=== PATIENT | male | born 1985 | race Two or more races ===

== ENCOUNTER 2016-09-08 19:54 | Inpatient (IN) | payer SELFPAY ==
[~2016-09-08] VITALS: Ht 182.9 cm; Wt 90.7 kg
[2016-09-08] MEDS: OLANZAPINE 10 MG/VIAL IM ONE ×2 (21:00→21:04)
[2016-09-08] MEDS: LORAZEPAM 2MG/ML CPJ IM ONE ×2 (21:02→21:04)
[2016-09-08] MEDS: BACITRACIN ZINC OINT UDPKT TOP ONE ×2 (21:02→21:04)
[2016-09-08] MEDS: LIDOCAINE HCL 1%/EPI 1:200,000 30 ML VIAL MC ONE ×2 (21:02→21:04)
[2016-09-08] MEDS: SODIUM CHLORIDE 0.9% 1,000 ML IV ONE ×2 (21:02→21:04)
[2016-09-08 21:30] LABS: BASOPHILS % 0.2 % (0.0-2.0); EOSINOPHILS % 0.4 % (0.0-5.0); HEMATOCRIT. 44.8 % (42.0-52.0); HEMOGLOBIN. 15.1 g/dL (14.0-18.0); LYMPHOCYTES % 17.1 % (20.0-50.0); MEAN CORPUSCULAR HEMOGLOBIN 29.4 pg (28.0-32.0); MEAN CORPUSCULAR HGB CONC 33.6 g/dL (31.0-37.0); MEAN CORPUSCULAR VOLUME 87.5 fL (80.0-94.0); MEAN PLATELET VOLUME 7.7 fl (7.4-10.4); MONOCYTES % 4.6 % (2.0-8.0); NEUTROPHILS % 77.7 % (40.0-76.0); PLATELET 171 x1000/uL (130-400); RED BLOOD CELL COUNT 5.12 mill/uL (4.7-6.1); RED CELL DISTRIBUTION WIDTH 14.6 % (11.6-14.6); WHITE BLOOD COUNT 5.8 x1000/uL (4.5-11.0)
[2016-09-08 21:47] LABS: ACETAMINOPHEN < 2 ug/mL (10-30); ALANINE AMINOTRANSFERASE 40 IU/L (13-61); ALBUMIN 4.2 g/dL (3.4-5.0); ANION GAP 19; CALCIUM 8.9 mg/dL (8.5-10.1); CARBON DIOXIDE 22 mEq/L (21-32); CHLORIDE 102 mEq/L (98-107); CREATINE KINASE 963 IU/L (39-308); ETHANOL BLOOD 178 mg/dL; INDEX HEMOLYSI 1 (1-3); INDEX ICTERIC 1 (1-4); INDEX LIPEMIC 1 (1-3); UREA NITROGEN BLOOD 16 mg/dL (7-21); eGFR > 60 mL/min (>60)
[2016-09-08] MEDS ORDERED: SODIUM CHLORIDE 0.9% 1,000 ML IV ONE (22:43)
[2016-09-08 23:27] LABS: CLARITY URINE CLEAR (CLEAR); COLOR URINE YELLOW (YELLOW); GLUCOSE URINE NEGATIVE (NEGATIVE); KETONES URINE NEGATIVE (NEGATIVE); LEUKOCYTE ESTERASE URINE NEGATIVE (NEGATIVE); NITRITE URINE NEGATIVE (NEGATIVE); OCCULT BLOOD URINE TRACE (NEGATIVE); PH URINE 5.5 (4.5-8.0); PROTEIN URINE NEGATIVE (NEGATIVE); SPECIFIC GRAVITY URINE 1.007 (1.005-1.030); UROBILINOGEN URINE 0.2 E.U./dL (0.2-1.0)
[2016-09-08 23:38] LABS: *AMPHETAMINES SCREEN URINE PRESUMTIVE POSITIVE (NEGATIVE); *BARBITURATES SCREEN URINE NEGATIVE (NEGATIVE); *BENZODIAZEPINES SCREEN URINE NEGATIVE (NEGATIVE); *COCAINE SCREEN URINE NEGATIVE (NEGATIVE); CANNABINOID URINE SCREEN NEGATIVE (NEGATIVE); ECSTASY MDMA SCREEN URINE NEGATIVE (NEGATIVE); METHADONE URINE SCREEN NEGATIVE (NEGATIVE); OPIATES URINE SCREEN NEGATIVE (NEGATIVE); PHENCYCLIDINE URINE SCREEN NEGATIVE (NEGATIVE)
[2016-09-08 23:45] LABS: INDEX HEMOLYSI 1 (1-3)
[2016-09-08 23:49] LABS: CREATINE KINASE 1410 IU/L (39-308)
[2016-09-09 01:37] LABS: INDEX HEMOLYSI 1 (1-3)
[2016-09-09 01:41] LABS: CREATINE KINASE 2122 IU/L (39-308)
[2016-09-09] MEDS ORDERED: SODIUM CHLORIDE 0.9% 1,000 ML IV ONE (01:55)
[2016-09-09 03:07] LABS: SQUAMOUS EPITHELIAL CELL URINE NONE SEEN /lpf (RARE/1+)
[2016-09-09 03:08] LABS: RBC URINE 0-2 /hpf (0-2); WBC URINE 0-2 /hpf (0-2)
[2016-09-09 03:09] LABS: BACTERIA URINE NONE SEEN
[2016-09-09] MEDS ORDERED: IPRATROPIUM/ALBUTEROL 0.5-3(2.5)MG/3ML NEB INH PRN (11:15)
[2016-09-09] MEDS ORDERED: ACETAMINOPHEN 650MG SUPP PR PRN (11:15)
[2016-09-09] MEDS ORDERED: ONDANSETRON HCL 4MG/2ML VIAL IV PRN (11:15)
[2016-09-09] MEDS ORDERED: DOCUSATE SODIUM 100MG CAPSULE PO PRN (11:15)
[2016-09-09] MEDS ORDERED: ACETAMINOPHEN 325MG TABLET PO PRN (11:15)
[2016-09-09] MEDS ORDERED: NA PHOS,M-B/NA PHOS,DI-BA ENEMA 118ML PR PRN (11:15)
[2016-09-09] MEDS ORDERED: ACETAMINOPHEN 650MG/20.3ML UDC GT PRN (11:15)
[2016-09-09] MEDS ORDERED: GUAIFENESIN 200MG/10ML SUGAR FREE UDC PO PRN (11:15)
[2016-09-09] MEDS ORDERED: CLONIDINE 0.1MG TABLET PO PRN (11:15)
[2016-09-09] MEDS ORDERED: MAGNESIUM/ALUMINUM HYDROXIDE/SIMETHICONE 30ML UDC PO PRN (11:15)
[2016-09-09] MEDS ORDERED: HYDROCODONE/ACETAMINOPHEN 5/325MG TABLET PO PRN (11:15)
[2016-09-09] MEDS ORDERED: DIPHENHYDRAMINE 50MG/ML VIAL IV PRN (11:15)
[2016-09-09 11:32] LABS: BASOPHILS % 0.2 % (0.0-2.0); EOSINOPHILS % 1.5 % (0.0-5.0); HEMOGLOBIN. 15.1 g/dL (14.0-18.0); LYMPHOCYTES % 24.8 % (20.0-50.0); MEAN CORPUSCULAR HEMOGLOBIN 29.5 pg (28.0-32.0); MEAN CORPUSCULAR HGB CONC 33.5 g/dL (31.0-37.0); MEAN CORPUSCULAR VOLUME 87.9 fL (80.0-94.0); MEAN PLATELET VOLUME 7.7 fl (7.4-10.4); MONOCYTES % 8.7 % (2.0-8.0); NEUTROPHILS % 64.8 % (40.0-76.0); PLATELET 143 x1000/uL (130-400); RED BLOOD CELL COUNT 5.12 mill/uL (4.7-6.1); RED CELL DISTRIBUTION WIDTH 14.4 % (11.6-14.6); WHITE BLOOD COUNT 7.2 x1000/uL (4.5-11.0)
[2016-09-09 11:54] VITALS: BP 140/87
[2016-09-09 11:56] LABS: INDEX HEMOLYSI 1 (1-3)
[2016-09-09 12:00] VITALS: BP 140/87
[2016-09-09 12:04] LABS: CREATINE KINASE 4138 IU/L (39-308)
[2016-09-09] MEDS: SODIUM CHLORIDE 0.9% 1,000 ML IV SCH ×2 (12:30→18:00)
[2016-09-09] MEDS: SODIUM CHLORIDE 0.9% INJ 3ML FLUSH IVF SCH (14:00)
[2016-09-09 16:00] VITALS: BP 128/82
[2016-09-09 16:31] LABS: CREATINE KINASE MB FRACTION 20.2 ng/mL (0.5-3.6)
[2016-09-10] VITALS: BP 134/74
[2016-09-10 00:18] LABS: ALANINE AMINOTRANSFERASE 41 IU/L (13-61); ALBUMIN 3.1 g/dL (3.4-5.0); ANION GAP 11; BILIRUBIN DIRECT 0.2 mg/dL (0.0-0.2); CALCIUM 8.4 mg/dL (8.5-10.1); CARBON DIOXIDE 31 mEq/L (21-32); CHLORIDE 105 mEq/L (98-107); INDEX HEMOLYSI 3 (1-3); INDEX ICTERIC 1 (1-4); INDEX LIPEMIC 1 (1-3); UREA NITROGEN BLOOD 18 mg/dL (7-21); eGFR > 60 mL/min (>60)
[2016-09-10] MEDS: SODIUM CHLORIDE 0.9% INJ 3ML FLUSH IVF SCH ×3 (00:36→14:00)
[2016-09-10] MEDS: SODIUM CHLORIDE 0.9% 1,000 ML IV SCH ×3 (00:37→09:35)
[2016-09-10 01:00] LABS: CREATINE KINASE MB FRACTION 12.9 ng/mL (0.5-3.6)
[2016-09-10 04:00] VITALS: BP 116/78
[2016-09-10 07:15] LABS: BASOPHILS % 0.3 % (0.0-2.0); HEMATOCRIT. 41.7 % (42.0-52.0); HEMOGLOBIN. 13.8 g/dL (14.0-18.0); MEAN CORPUSCULAR HEMOGLOBIN 29.3 pg (28.0-32.0); MEAN CORPUSCULAR HGB CONC 33.2 g/dL (31.0-37.0); MEAN CORPUSCULAR VOLUME 88.1 fL (80.0-94.0); MEAN PLATELET VOLUME 8.2 fl (7.4-10.4); NEUTROPHILS % 54.7 % (40.0-76.0); PLATELET 139 x1000/uL (130-400); RED BLOOD CELL COUNT 4.73 mill/uL (4.7-6.1); RED CELL DISTRIBUTION WIDTH 14.7 % (11.6-14.6); WHITE BLOOD COUNT 4.6 x1000/uL (4.5-11.0)
[2016-09-10 07:50] LABS: ALANINE AMINOTRANSFERASE 40 IU/L (13-61); ALBUMIN 3.1 g/dL (3.4-5.0); ANION GAP 12; CALCIUM 8.6 mg/dL (8.5-10.1); CARBON DIOXIDE 28 mEq/L (21-32); CHLORIDE 107 mEq/L (98-107); HDL CHOLESTEROL 47 mg/dL (40-59); INDEX HEMOLYSI 1 (1-3); INDEX ICTERIC 1 (1-4); INDEX LIPEMIC 1 (1-3); LDL CHOLESTEROL 92 mg/dL (5-100); TRIGLYCERIDE 203 mg/dL (0-150); UREA NITROGEN BLOOD 17 mg/dL (7-21); eGFR > 60 mL/min (>60)
[2016-09-10 08:00] VITALS: BP 132/75
[2016-09-10 08:59] LABS: AMMONIA 43 uMol/L (<32)
[2016-09-10 12:00] VITALS: BP 117/78
[2016-09-10 16:00] VITALS: BP 134/74
[2016-09-10 18:56] VITALS: BP 127/73
== END 2016-09-10 19:50 | disposition home or self-care (01) | DRG 775 ==
LOC: ER 19:55 → EDBD 19:55 → 6EST 09-09 03:03 → UNDOADMIN 09-09 09:57 → CVICU 09-09 09:57
PROVIDERS: ADMIT Family Medicine; ATTEND Family Medicine
DX: F10.129 Alcohol abuse with intoxication, unspecified (principal); G92 Toxic encephalopathy; M62.82 Rhabdomyolysis; E16.2 Hypoglycemia, unspecified; F15.10 Other stimulant abuse, uncomplicated; Y90.9 Presence of alcohol in blood, level not specified
CPT/HCPCS: 36415; 71010; 73130; 80053; 80061; 80076; 80305; 80307; 80329; 81001; 82140; 82550; 82553; 83036; 83605; 84443; 85025; 93005; 96360; 96361; 96372; 99285; G0482; J2060; J3490; J7030